=== PATIENT | female | born 1995 | race Caucasian/White ===

== ENCOUNTER → 2017-08-12 | Outpatient (CLI) | payer OTHER ==
[~2017-08-12] MED LIST: BARIUM SULFATE 60% 355 ML SUSP PO ONE
--- NOTE | 2017-08-12 12:25 | RAD ---
Small bowel series, 08/12/2017: History: Abdominal pain The preliminary abdominal image is unremarkable. Overhead and spot films were obtained following oral ingestion of liquid barium. 0.5 minutes of fluoroscopy time was visualized. 3 fluoroscopic spot images were recorded. The small bowel loops are of normal caliber with no evidence of thickening of their folds. There is normal transit of the barium through the small bowel into the colon. The terminal ileum is unremarkable. IMPRESSION: No small bowel abnormality is detected.
== END | disposition home or self-care (01) ==
LOC: RAD 07:50
PROVIDERS: ATTEND Internal Medicine Gastroenterology
DX: R10.9 Unspecified abdominal pain (principal)
CPT/HCPCS: 74250